=== PATIENT | female | born 1965 | race Caucasian/White ===

== ENCOUNTER 2018-11-17 14:39 | Observation (INO) | payer OTHER, SELFPAY ==
[2018-11-17 15:01] VITALS: BP 140/83; PULSE 90; RESP 15; TEMP 36.6; O2SAT 100; BMI 24.0
[2018-11-17 15:28] LABS: Add Manual Diff / Slide Review NO; Basophils Absolute Auto 0 /uL (0-100); Basophils Percent Auto 0.2 % (0-2); Eosinophils Absolute Auto 0 /uL (0-450); Eosinophils Percent Auto 0.2 % (2-4); Hematocrit 39.5 % (36-46); Hemoglobin 13.5 g/dL (12.0-16.0); Lymphocytes Absolute Auto 800 /uL (1100-4500); Lymphocytes Percent Auto 9.9 % (25-40); Mean Corpuscular HGB Conc 34.2 % (30-36); Mean Corpuscular Volume 99.5 fL (80-100); Monocytes Absolute Auto 800 /uL (0-900); Monocytes Percent Auto 9.5 % (3-14); Neutrophils Absolute Auto 6600 /uL (1500-7000); Neutrophils Percent Auto 80.2 % (50-75); Platelet Count 271 X10^3/uL (150-400); Red Blood Cell Count 3.97 X10^6/uL (4.0-5.2); Red Cell Distribution Width 13.5 % (11.6-14.8); White Blood Cell Count 8.2 X10^3/uL (4.5-11.0)
[2018-11-17 15:36] LABS: INR 1.1 (0.9-1.3); Prothrombin Time 12.2 SECONDS (10.1-12.7)
[2018-11-17 15:39] LABS: PTT Partial Thromboplastin Tim 32 SECONDS (26.4-36.2)
[2018-11-17 15:43] LABS: Alanine Aminotransferase 50 IU/L (9-52); Albumin 4.7 g/dL (3.5-5.0); Albumin Globulin Ratio 1.4 (1.0-2.8); Alkaline Phosphatase 98 U/L (38-126); Aspartate Aminotransferase 43 IU/L (14-36); Bilirubin Total 0.7 mg/dL (0.2-1.3); Blood Urea Nitrogen 8 mg/dL (7-17); Calcium 9.5 mg/dL (8.4-10.2); Carbon Dioxide 28 mmol/L (22-32); Chloride 103 mmol/L (98-107); Estimated Glomerular Filt Rate > 60.0 mL/min (>60); Globulin 3.4 g/dL (1.7-4.1); Glucose 107 mg/dL (70-100); HEMOLYSIS < 15 (0-50); Lipase 45 U/L (23-300); Potassium 4.1 mmol/L (3.4-5.1); Sodium 142 mmol/L (137-145); Total Protein 8.1 g/dL (6.3-8.2)
--- NOTE | 2018-11-17 15:55 | DI.CT.S_ITS ---
PROCEDURE: CT ABDOMEN PELVIS W CON INDICATIONS: RLQ rebound pain for 3 days TECHNIQUE: After the administration of intravenous contrast, 5 mm thick sections acquired from the diaphragm to the symphysis. 5 mm coronal and sagittal reformats were acquired. For radiation dose reduction, the following was used: automated exposure control, adjustment of mA and/or kV according to patient size. COMPARISON: None. FINDINGS: Image quality: Excellent. ABDOMEN: Lung bases: Lung bases are clear. Heart size is normal. Solid organs: Liver is normal in size and enhancement. Gallbladder unremarkable. Biliary system is non dilated. Pancreas enhances normally. Spleen is normal in size and enhancement. No adrenal nodules. Kidneys demonstrate normal size and enhancement, without hydronephrosis. There is a 3 mm left renal calculus on image 21. Peritoneum and bowel: There is inflammatory stranding seen within the right paracolic gutter, in the region of the cecum. Scattered shotty mesenteric lymph nodes, some 5 mm in size. The appendix appears enlarged measuring 8 mm in diameter however there is air within the lumen, which argues against obstruction. There is minimal periappendiceal fat stranding. No free fluid or air. No abscess. Nodes and vessels: No retroperitoneal or mesenteric adenopathy by size criteria. Aorta and inferior vena cava are normal in size. Miscellaneous: No ventral hernias. As PELVIS: Genitourinary: Bladder wall thickness is normal. Miscellaneous: No inguinal hernias or adenopathy. Bones: No suspicious bony lesions. No vertebral body compression fractures. IMPRESSION: Enlarged appendix, however air within lumen is not typically seen with obstruction. Minimal periappendiceal fat stranding, however there is also pericecal inflammatory change. Findings could reflect acute appendicitis, although alternative differential includes infectious or inflammatory proximal right colitis. As clinically warranted, colonoscopy could also be considered to exclude colonic malignancy. Nonobstructive sub-5 mm left renal calculus. Findings personally tel. and discussed with Isaias MASON in the emergency department 1642 hours on 11/17/18. Dictated by: Praneeth Green M.D. on 11/17/2018 at 16:34 Approved by: Praneeth Green M.D. on 11/17/2018 at 16:44
[2018-11-17] MEDS: SODIUM CHLORIDE 0.9% 1,000 ML 150 ML IV (16:32)
--- NOTE | 2018-11-17 17:03 | ED.ABDPAIN ---
HPI - Abdominal Pain <MARLON Melendez - Last Filed: 11/18/18 00:28> General Chief Complaint: Abdominal Pain Stated Complaint: RLQ Pain Time Seen by Provider: 11/17/18 15:11 Source: patient Mode of arrival: ambulatory Limitations: no limitations History of Present Illness HPI narrative: This is a 49-year-old female, nonsmoker, presents with her significant other with chief complain of right lower quadrant pain. She reports the pain started 2 days ago at 5:00 p.m. which has been progressively getting worse and consistent. Now, she is having chills decreased appetite. She also reports has been having constipation over the last 1 month and she has been taking laxatives intermittently. She denies urinary symptoms. She reports her pain is 5/10 at this time. She reports her pain gets aggravated with any movements. She denies nausea/vomiting. She has no known previous abdominal surgeries. Her last meal was 3 hours ago and had drank water was recently. Her last LMP was 3 years ago. Related Data Home Medications Medication Instructions Recorded Confirmed Barberry 1 tab PO DAILY 11/17/18 11/17/18 Calcium Tablet 1 tab PO DAILY 11/17/18 11/17/18 Fish Oil 1 cap PO DAILY 11/17/18 11/17/18 Vitamin D3 1 cap PO DAILY 11/17/18 11/17/18 magnesium 1 tab PO DAILY 11/17/18 11/17/18 milk thistle 1 tab PO DAILY 11/17/18 11/17/18 turmeric 1 tab PO DAILY 11/17/18 11/17/18 valacyclovir See Rx Instructions .ROUTE .COMPLEX 11/17/18 11/17/18 vitamin E 1 cap PO DAILY 11/17/18 11/17/18 vitamin K 1 tab PO DAILY 11/17/18 11/17/18 Allergies Allergy/AdvReac Type Severity Reaction Status Date / Time No Known Drug Allergies Allergy Verified 11/17/18 15:01 Review of Systems <MARLON Melendez - Last Filed: 11/18/18 00:28> Review of Systems General: See HPI HEENT: Denies sinus pain, ear pain, sore throat, difficulty swallowing, dizziness. Respiratory: Denies dyspnea, cough, wheezing, hemoptysis, sputum. Cardiovascular: Denies chest pain, palpitations, orthopnea, edema. Gastrointestinal: See HPI : Denies dysuria, frequency, incontinence, hematuria, urinary retention. Musculoskeletal: Denies weakness, joint pain or bony pain. Skin: Denies rash, skin lesions, or other. Neurologic: Denies weakness, headache, numbness, change in speech, confusion, seizures, incoordination. Psychiatric: No concerning psychosocial issues. 12-point review of systems is negative except for those stated above. PFSH <MARLON Melendez - Last Filed: 11/18/18 00:28> Surgical History H/O arthroscopy of left knee (Acute) H/O sinus surgery (Acute) Social History household members: spouse Smoking Status: Never smoker Social History household members: spouse Smoking Status: Never smoker Exam <MARLON Melendez - Last Filed: 11/18/18 00:28> Narrative Exam Narrative: General appearance: Appears to be younger than her stated age, well developed, well nourished, in some discomfort. Head: normocephalic, atraumatic, no scalp lesions, non-tender. Eye: pupil equal, round. EOMI. Nose: nares patent. Oral: mucosa moist. Neck/Thyroid: neck supple, full range of motion, no visible masses. Skin: no suspicious rashes, lesions over visible areas. Warm and dry. Heart: Normal regular rate and rhythm without murmurs, gallops, or rubs. Lungs: Clear to auscultate bilaterally without wheezing, rhonchi, rales. Breathing even and unlabored. No stridor. No accessory muscles used. Chest: normal shape and expansion. Abdomen: Bowel sounds active in 4 quadrants, non-obese, non-distended. Rebound tenderness to palpate in RLQ. Postive McBurney's tenderness and Rovsing's sign. No organomeally. BACK: Nontender without deformity or crepitance. No flank tenderness. EXT: Full painless ROM of all extremities with no loss of sensation, strength, effusion or edema. SKIN: Warm, dry, normal color for patient. No erythema, lesions or rash over visible areas. Neurologic: alert and oriented. Cognitive exam, EFFICIENCY MINER BLASTING and PNS grossly intact on informal exam. Psych: good eye contact, normal affect. Initial Vital Signs Initial Vital Signs: Vital Signs Temperature 97.8 F 11/17/18 15:01 Pulse Rate 90 11/17/18 15:01 Respiratory Rate 15 11/17/18 15:01 Blood Pressure 140/83 11/17/18 15:01 Pulse Oximetry 100 11/17/18 15:01 <Bossman Balbuena DO - Last Filed: 11/19/18 06:38> Initial Vital Signs Initial Vital Signs: Vital Signs Temperature 97.8 F 11/17/18 15:01 Pulse Rate 90 11/17/18 15:01 Respiratory Rate 15 11/17/18 15:01 Blood Pressure 140/83 11/17/18 15:01 Pulse Oximetry 100 11/17/18 15:01 Course <Isaias BoboMARLON rossi - Last Filed: 11/18/18 00:28> Decision to Admit Date: 11/17/18 Decision to Admit time: 17:03 Additional Information: Spoke with Dr. Beasley for consult and discuss findings. Dr. Beasley kindly accepted the patient under surgery service and will evaluate the patient upstairs later time. Orders Ordered: Acetaminophen (Tylenol) 650 mg PO Q6HR PRN PRN Reason: As Needed for Fever/Mild Pain Piperacillin/Tazobactam/Dextrose (Zosyn) 3.375 gm in 50 mls @ 100 mls/hr IV Q6H [facility] Last Infusion: 11/19/18 00:10 Dose: 0 mls/hr Admin: 11/18/18 23:39 Dose: 100 mls/hr Infusion: 11/18/18 17:31 Dose: 100 mls/hr Admin: 11/18/18 17:01 Dose: 100 mls/hr Infusion: 11/18/18 11:27 Dose: 100 mls/hr Admin: 11/18/18 10:57 Dose: 100 mls/hr Infusion: 11/18/18 06:34 Dose: 100 mls/hr Admin: 11/18/18 05:35 Dose: 100 mls/hr Infusion: 11/17/18 23:33 Dose: 100 mls/hr Admin: 11/17/18 23:03 Dose: 100 mls/hr Infusion: 11/17/18 18:00 Dose: 0 mls/hr Admin: 11/17/18 17:31 Dose: 100 mls/hr Metronidazole (Flagyl) 500 mg in 100 mls @ 100 mls/hr IV Q8H [facility] Last Admin: 11/19/18 04:08 Dose: 100 mls/hr Infusion: 11/18/18 23:39 Dose: 0 mls/hr Admin: 11/18/18 20:04 Dose: 100 mls/hr Infusion: 11/18/18 13:15 Dose: 100 mls/hr Admin: 11/18/18 12:15 Dose: 100 mls/hr Infusion: 11/18/18 05:31 Dose: 100 mls/hr Admin: 11/18/18 04:17 Dose: 100 mls/hr Infusion: 11/17/18 21:59 Dose: 100 mls/hr Admin: 11/17/18 20:59 Dose: 100 mls/hr Sodium Chloride (Normal Saline 0.45%) 1,000 mls @ 50 mls/hr IV CONT [facility] Last Admin: 11/18/18 10:17 Dose: 50 mls/hr Infusion: 11/18/18 07:00 Dose: 100 mls/hr Admin: 11/17/18 21:00 Dose: 100 mls/hr Ketorolac Tromethamine (Toradol) 15 mg IV Q6H PRN PRN Reason: Breakthrough Pain Stop: 11/23/18 10:10 Ondansetron HCl (Zofran) 4 mg IV Q4HR PRN PRN Reason: Nausea And Vomiting Discontinued Medications Sodium Chloride (Normal Saline 0.9%) 1,000 mls @ 150 mls/hr IV CONT [facility] Last Infusion: 11/17/18 19:20 Dose: 0 mls/hr Admin: 11/17/18 16:32 Dose: 150 mls/hr Morphine Sulfate (Morphine) 4 mg IV NOW ONE Stop: 11/17/18 17:51 Last Admin: 11/17/18 18:37 Dose: 4 mg Morphine Sulfate (Morphine) 4 mg IV Q2HR [facility] Last Admin: 11/18/18 09:02 Dose: Not Given Admin: 11/18/18 08:18 Dose: Not Given Admin: 11/18/18 05:03 Dose: Not Given Admin: 11/18/18 03:46 Dose: Not Given Admin: 11/18/18 00:24 Dose: 4 mg Admin: 11/18/18 00:24 Dose: Not Given Admin: 11/17/18 21:03 Dose: Not Given Admin: 11/17/18 19:57 Dose: Not Given Ondansetron HCl (Zofran) 4 mg IV NOW ONE Stop: 11/17/18 17:51 Last Admin: 11/17/18 18:37 Dose: 4 mg Vital Signs - 8 hr 11/18/18 23:36 11/18/18 23:45 11/19/18 02:49 Temperature 98.9 F 97.6 F Pulse Rate 77 63 Respiratory Rate 16 18 Blood Pressure 108/74 97/57 L Pulse Oximetry 96 96 96 <Bossman Balbuena, - Last Filed: 11/19/18 06:38> Orders Ordered: Acetaminophen (Tylenol) 650 mg PO Q6HR PRN PRN Reason: As Needed for Fever/Mild Pain Piperacillin/Tazobactam/Dextrose (Zosyn) 3.375 gm in 50 mls @ 100 mls/hr IV Q6H [facility] Last Infusion: 11/19/18 00:10 Dose: 0 mls/hr Admin: 11/18/18 23:39 Dose: 100 mls/hr Infusion: 11/18/18 17:31 Dose: 100 mls/hr Admin: 11/18/18 17:01 Dose: 100 mls/hr Infusion: 11/18/18 11:27 Dose: 100 mls/hr Admin: 11/18/18 10:57 Dose: 100 mls/hr Infusion: 11/18/18 06:34 Dose: 100 mls/hr Admin: 11/18/18 05:35 Dose: 100 mls/hr Infusion: 11/17/18 23:33 Dose: 100 mls/hr Admin: 11/17/18 23:03 Dose: 100 mls/hr Infusion: 11/17/18 18:00 Dose: 0 mls/hr Admin: 11/17/18 17:31 Dose: 100 mls/hr Metronidazole (Flagyl) 500 mg in 100 mls @ 100 mls/hr IV Q8H [facility] Last Admin: 11/19/18 04:08 Dose: 100 mls/hr Infusion: 11/18/18 23:39 Dose: 0 mls/hr Admin: 11/18/18 20:04 Dose: 100 mls/hr Infusion: 11/18/18 13:15 Dose: 100 mls/hr Admin: 11/18/18 12:15 Dose: 100 mls/hr Infusion: 11/18/18 05:31 Dose: 100 mls/hr Admin: 11/18/18 04:17 Dose: 100 mls/hr Infusion: 11/17/18 21:59 Dose: 100 mls/hr Admin: 11/17/18 20:59 Dose: 100 mls/hr Sodium Chloride (Normal Saline 0.45%) 1,000 mls @ 50 mls/hr IV CONT [facility] Last Admin: 11/18/18 10:17 Dose: 50 mls/hr Infusion: 11/18/18 07:00 Dose: 100 mls/hr Admin: 11/17/18 21:00 Dose: 100 mls/hr Ketorolac Tromethamine (Toradol) 15 mg IV Q6H PRN PRN Reason: Breakthrough Pain Stop: 11/23/18 10:10 Ondansetron HCl (Zofran) 4 mg IV Q4HR PRN PRN Reason: Nausea And Vomiting Discontinued Medications Sodium Chloride (Normal Saline 0.9%) 1,000 mls @ 150 mls/hr IV CONT [facility] Last Infusion: 11/17/18 19:20 Dose: 0 mls/hr Admin: 11/17/18 16:32 Dose: 150 mls/hr Morphine Sulfate (Morphine) 4 mg IV NOW ONE Stop: 11/17/18 17:51 Last Admin: 11/17/18 18:37 Dose: 4 mg Morphine Sulfate (Morphine) 4 mg IV Q2HR [facility] Last Admin: 11/18/18 09:02 Dose: Not Given Admin: 11/18/18 08:18 Dose: Not Given Admin: 11/18/18 05:03 Dose: Not Given Admin: 11/18/18 03:46 Dose: Not Given Admin: 11/18/18 00:24 Dose: 4 mg Admin: 11/18/18 00:24 Dose: Not Given Admin: 11/17/18 21:03 Dose: Not Given Admin: 11/17/18 19:57 Dose: Not Given Ondansetron HCl (Zofran) 4 mg IV NOW ONE Stop: 11/17/18 17:51 Last Admin: 11/17/18 18:37 Dose: 4 mg Vital Signs - 8 hr 11/18/18 23:36 11/18/18 23:45 11/19/18 02:49 Temperature 98.9 F 97.6 F Pulse Rate 77 63 Respiratory Rate 16 18 Blood Pressure 108/74 97/57 L Pulse Oximetry 96 96 96 MDM - Abdominal Pain <Isaias MARLON Downey - Last Filed: 11/18/18 00:28> Differential Diagnosis Differential diagnosis: Likely abdominal pain, acute appendicitis and calculus of kidney Medical Records Attestation: I reviewed the patient's medical records. Lab Data Attestation: I reviewed the patient's lab results. Result diagrams: 11/18/18 09:30 11/17/18 15:12 Lab Results 11/17/18 11/17/18 11/17/18 Range/Units 15:12 15:12 15:12 WBC 8.2 (4.5-11.0) X10^3/uL RBC 3.97 L (4.0-5.2) X10^6/uL Hgb 13.5 (12.0-16.0) g/dL Hct 39.5 (36-46) % MCV 99.5 (80-100) fL MCH 34.0 (26-34) PG MCHC 34.2 (30-36) % RDW 13.5 (11.6-14.8) % Plt Count 271 (150-400) X10^3/uL Neut % (Auto) 80.2 H (50-75) % Lymph % (Auto) 9.9 L (25-40) % Garland % (Auto) 9.5 (3-14) % Eos % (Auto) 0.2 L (2-4) % Baso % (Auto) 0.2 (0-2) % Neut # (Auto) 6600 (4864-6632) /uL Lymph # (Auto) 800 L (3562-2669) /uL Garland # (Auto) 800 (0-900) /uL Eos # (Auto) 0 (0-450) /uL Baso # (Auto) 0 (0-100) /uL PT 12.2 (10.1-12.7) SECONDS INR 1.1 (0.9-1.3) APTT 32 (26.4-36.2) SECONDS Sodium 142 (137-145) mmol/L Potassium 4.1 (3.4-5.1) mmol/L Chloride 103 (98-107) mmol/L Carbon Dioxide 28 (22-32) mmol/L BUN 8 (7-17) mg/dL Creatinine 0.50 L (0.52-1.04) mg/dL Estimated GFR > 60.0 (>60) mL/min BUN/Creatinine Ratio 16.0 (6-22) Glucose 107 H (70-100) mg/dL Calcium 9.5 (8.4-10.2) mg/dL Total Bilirubin 0.7 (0.2-1.3) mg/dL AST 43 H (14-36) IU/L ALT 50 (9-52) IU/L Alkaline Phosphatase 98 (38-126) U/L Total Protein 8.1 (6.3-8.2) g/dL Albumin 4.7 (3.5-5.0) g/dL Globulin 3.4 (1.7-4.1) g/dL Albumin/Globulin Ratio 1.4 (1.0-2.8) Lipase 45 (23-300) U/L 11/18/18 Range/Units 09:30 WBC 6.4 (4.5-11.0) X10^3/uL RBC 3.61 L (4.0-5.2) X10^6/uL Hgb 12.2 (12.0-16.0) g/dL Hct 35.9 L (36-46) % MCV 99.4 (80-100) fL MCH 33.8 (26-34) PG MCHC 34.0 (30-36) % RDW 13.2 (11.6-14.8) % Plt Count 228 (150-400) X10^3/uL Neut % (Auto) 77.8 H (50-75) % Lymph % (Auto) 10.0 L (25-40) % Garland % (Auto) 11.1 (3-14) % Eos % (Auto) 0.8 L (2-4) % Baso % (Auto) 0.3 (0-2) % Neut # (Auto) 5000 (6738-9900) /uL Lymph # (Auto) 600 L (4000-1475) /uL Garland # (Auto) 700 (0-900) /uL Eos # (Auto) 0 (0-450) /uL Baso # (Auto) 0 (0-100) /uL PT (10.1-12.7) SECONDS INR (0.9-1.3) APTT (26.4-36.2) SECONDS Sodium (137-145) mmol/L Potassium (3.4-5.1) mmol/L Chloride (98-107) mmol/L Carbon Dioxide (22-32) mmol/L BUN (7-17) mg/dL Creatinine (0.52-1.04) mg/dL Estimated GFR (>60) mL/min BUN/Creatinine Ratio (6-22) Glucose (70-100) mg/dL Calcium (8.4-10.2) mg/dL Total Bilirubin (0.2-1.3) mg/dL AST (14-36) IU/L ALT (9-52) IU/L Alkaline Phosphatase (38-126) U/L Total Protein (6.3-8.2) g/dL Albumin (3.5-5.0) g/dL Globulin (1.7-4.1) g/dL Albumin/Globulin Ratio (1.0-2.8) Lipase (23-300) U/L Point of care testing: Urine Dip Bedside Urine Glucose Negative Bedside Urine Bilirubin - Negative Bedside Urine Ketone + 15 Urine Specific Uehling 1.015 Bedside Urine Occult Blood +/- Bedside Urine pH 6.5 Bedside Urine Protein - Negative Bedside Urine Urobilinogen - Negative Bedside Urine Nitrite - Negative Bedside Urine Leukocytes - Negative Esterase Imaging Data CT scan - abdomen: Radiologist's impression: Lauren Lerma 53 F 1965 [place] [address] CT Scan Report Signed Patient: Lauren LermaMR#: [id number] : 1965Acct:[id number] Age/Sex: 53 / FDate of Service: 11/17/18 Loc: ED Accession Number: [id number] Procedure: CT abdomen pelvis w con Ordering Provider: Isaias Downey PROCEDURE: CT ABDOMEN PELVIS W CON INDICATIONS: RLQ rebound pain for 3 days TECHNIQUE: After the administration of intravenous contrast, 5 mm thick sections acquired from the diaphragm to the symphysis. 5 mm coronal and sagittal reformats were acquired. For radiation dose reduction, the following was used: automated exposure control, adjustment of mA and/or kV according to patient size. COMPARISON: None. FINDINGS: Image quality: Excellent. ABDOMEN: Lung bases: Lung bases are clear. Heart size is normal. Solid organs: Liver is normal in size and enhancement. Gallbladder unremarkable. Biliary system is non dilated. Pancreas enhances normally. Spleen is normal in size and enhancement. No adrenal nodules. Kidneys demonstrate normal size and enhancement, without hydronephrosis. There is a 3 mm left renal calculus on image 21. Peritoneum and bowel: There is inflammatory stranding seen within the right paracolic gutter, in the region of the cecum. Scattered shotty mesenteric lymph nodes, some 5 mm in size. The appendix appears enlarged measuring 8 mm in diameter however there is air within the lumen, which argues against obstruction. There is minimal periappendiceal fat stranding. No free fluid or air. No abscess. Nodes and vessels: No retroperitoneal or mesenteric adenopathy by size criteria. Aorta and inferior vena cava are normal in size. Miscellaneous: No ventral hernias. As PELVIS: Genitourinary: Bladder wall thickness is normal. Miscellaneous: No inguinal hernias or adenopathy. Bones: No suspicious bony lesions. No vertebral body compression fractures. IMPRESSION: Enlarged appendix, however air within lumen is not typically seen with obstruction. Minimal periappendiceal fat stranding, however there is also pericecal inflammatory change. Findings could reflect acute appendicitis, although alternative differential includes infectious or inflammatory proximal right colitis. As clinically warranted, colonoscopy could also be considered to exclude colonic malignancy. Nonobstructive sub-5 mm left renal calculus. Findings personally tel. and discussed with Isaias MASON in the emergency department 1642 hours on 11/17/18. Dictated by: Praneeth Green M.D. on 11/17/2018 at 16:34 Approved by: Praneeth Green M.D. on 11/17/2018 at 16:44 MDM Narrative Medical decision making narrative: This is a 53-year-old female who appears to be younger than her stated age came in with right lower quadrant pain 2 days. She reports the pain has been progressively worsening. Now she has chills, with decreased appetite. She does not have history of previous abdominal surgeries. She reports no urinary symptoms or flank pain, denies nausea or vomiting. She states has been having constipation problem for over 1 month which she has been taking laxatives intermittently for this. Her last LMP was 3 years ago in 2016. She states had eaten some small meal 3 hours ago and had drank just recently. The WBC was within normal but with elevated neutrophils with decreased lymphocytes. The chemistry result was unremarkable. Her CT scan shows enlarged appendix however air within the lumen is not typically seen with obstruction. There was minimal periappendiceal fat stranding. Also there is pericecal inflammatory changes. Findings could reflect acute appendicitis, also alternative differential includes infectious or inflammatory proximal right colitis, colonic malignancy. was consulted and informed the findings. He kindly accepted this patient under surgical service. Instructions was to have patient NPO, IV hydration, pain management and he will follow up later on today. Patient was treated with IV fluid normal saline, a dose of 4 mg of morphine IV, and Zofran IV 4 mg before admitted to inpatient for increasing pain right lower quadrant. The findings were shared with the patient and her significant other and treatment plan as admitted to inpatient under surgical service. No further questions was expressed by the patient or her significant other. <Bossman Balbuena, DO - Last Filed: 11/19/18 06:38> Lab Data Lab Results 11/17/18 11/17/18 11/17/18 Range/Units 15:12 15:12 15:12 WBC 8.2 (4.5-11.0) X10^3/uL RBC 3.97 L (4.0-5.2) X10^6/uL Hgb 13.5 (12.0-16.0) g/dL Hct 39.5 (36-46) % MCV 99.5 (80-100) fL MCH 34.0 (26-34) PG MCHC 34.2 (30-36) % RDW 13.5 (11.6-14.8) % Plt Count 271 (150-400) X10^3/uL Neut % (Auto) 80.2 H (50-75) % Lymph % (Auto) 9.9 L (25-40) % Garland % (Auto) 9.5 (3-14) % Eos % (Auto) 0.2 L (2-4) % Baso % (Auto) 0.2 (0-2) % Neut # (Auto) 6600 (6431-0499) /uL Lymph # (Auto) 800 L (9013-3955) /uL Garland # (Auto) 800 (0-900) /uL Eos # (Auto) 0 (0-450) /uL Baso # (Auto) 0 (0-100) /uL PT 12.2 (10.1-12.7) SECONDS INR 1.1 (0.9-1.3) APTT 32 (26.4-36.2) SECONDS Sodium 142 (137-145) mmol/L Potassium 4.1 (3.4-5.1) mmol/L Chloride 103 (98-107) mmol/L Carbon Dioxide 28 (22-32) mmol/L BUN 8 (7-17) mg/dL Creatinine 0.50 L (0.52-1.04) mg/dL Estimated GFR > 60.0 (>60) mL/min BUN/Creatinine Ratio 16.0 (6-22) Glucose 107 H (70-100) mg/dL Calcium 9.5 (8.4-10.2) mg/dL Total Bilirubin 0.7 (0.2-1.3) mg/dL AST 43 H (14-36) IU/L ALT 50 (9-52) IU/L Alkaline Phosphatase 98 (38-126) U/L Total Protein 8.1 (6.3-8.2) g/dL Albumin 4.7 (3.5-5.0) g/dL Globulin 3.4 (1.7-4.1) g/dL Albumin/Globulin Ratio 1.4 (1.0-2.8) Lipase 45 (23-300) U/L 11/18/18 Range/Units 09:30 WBC 6.4 (4.5-11.0) X10^3/uL RBC 3.61 L (4.0-5.2) X10^6/uL Hgb 12.2 (12.0-16.0) g/dL Hct 35.9 L (36-46) % MCV 99.4 (80-100) fL MCH 33.8 (26-34) PG MCHC 34.0 (30-36) % RDW 13.2 (11.6-14.8) % Plt Count 228 (150-400) X10^3/uL Neut % (Auto) 77.8 H (50-75) % Lymph % (Auto) 10.0 L (25-40) % Garland % (Auto) 11.1 (3-14) % Eos % (Auto) 0.8 L (2-4) % Baso % (Auto) 0.3 (0-2) % Neut # (Auto) 5000 (4629-2010) /uL Lymph # (Auto) 600 L (2026-5633) /uL Garland # (Auto) 700 (0-900) /uL Eos # (Auto) 0 (0-450) /uL Baso # (Auto) 0 (0-100) /uL PT (10.1-12.7) SECONDS INR (0.9-1.3) APTT (26.4-36.2) SECONDS Sodium (137-145) mmol/L Potassium (3.4-5.1) mmol/L Chloride (98-107) mmol/L Carbon Dioxide (22-32) mmol/L BUN (7-17) mg/dL Creatinine (0.52-1.04) mg/dL Estimated GFR (>60) mL/min BUN/Creatinine Ratio (6-22) Glucose (70-100) mg/dL Calcium (8.4-10.2) mg/dL Total Bilirubin (0.2-1.3) mg/dL AST (14-36) IU/L ALT (9-52) IU/L Alkaline Phosphatase (38-126) U/L Total Protein (6.3-8.2) g/dL Albumin (3.5-5.0) g/dL Globulin (1.7-4.1) g/dL Albumin/Globulin Ratio (1.0-2.8) Lipase (23-300) U/L Point of care testing: Urine Dip Bedside Urine Glucose Negative Bedside Urine Bilirubin - Negative Bedside Urine Ketone + 15 Urine Specific Uehling 1.015 Bedside Urine Occult Blood +/- Bedside Urine pH 6.5 Bedside Urine Protein - Negative Bedside Urine Urobilinogen - Negative Bedside Urine Nitrite - Negative Bedside Urine Leukocytes - Negative Esterase Discharge Plan Departure Patient Disposition: Admitted As Inpatient Clinical Impression: Acute appendicitis Qualifiers: Acute appendicitis type: unspecified acute appendicitis type Qualified Code(s): K35.80 - Unspecified acute appendicitis Discharge Date/Time: 11/17/18 19:24 Interventions: ED Discharge Assessment Last Done: 11/17/18 19:24 Admit Date/Time: 11/17/18 17:25 Admit Provider: Tim Camp <Bossman Balbuena DO - Last Filed: 11/19/18 06:38> Cosign ED Attending Curt Attestation: I was immediately available in the department for consultation. Documentation has been reviewed. I agree with assessment and plan.
[2018-11-17 17:15] VITALS: BP 114/72; PULSE 72; RESP 16; TEMP 36.4; O2SAT 100
[2018-11-17] MEDS: PIPERACILLIN-TAZO 3.375 GM/50 ML FROZ.PIGGY IV ×2 (17:31→23:03)
[2018-11-17 18:33] VITALS: BP 121/78; PULSE 67; RESP 16; O2SAT 99
[2018-11-17] MEDS: ONDANSETRON 4 MG/2 ML INJ IV (18:37)
[2018-11-17] MEDS: MORPHINE 4 MG/ML INJ IV (18:37)
[2018-11-17 19:27] VITALS: BP 136/77; PULSE 60; RESP 20; TEMP 37.9; O2SAT 99
[2018-11-17 19:45] VITALS: BMI 24.0
--- NOTE | 2018-11-17 20:23 | PM.HP.1 ---
History of Present Illness Date Patient Seen: 11/17/18 Time Patient Seen: 20:23 Chief complaint: RLQ Pain Narrative: 53-year-old white female patient with a 3 day history of abdominal pain. No nausea vomiting no diarrhea. No history of bloody stools no history of diarrhea. The patient typically is constipated. Pain increased over the last 48 hours and she came to the emergency room here at [facility]. She has normal white count was afebrile. CT of the abdomen and pelvis reveal some form of colitis around the cecum. There is some stranding in the cecal area. The appendix is mildly dilated but there is air in the lumen and the is no stranding around the appendix itself. Patient is actually maintained in appetite even through this evening. Patient History Surgical History H/O arthroscopy of left knee (Acute) H/O sinus surgery (Acute) Social History household members: spouse Smoking Status: Never smoker Family & Social History Social History: household members spouse Prior Living Arrangements House Safety & Behavioral: Feels Safe in Current Yes Environment Been Physically Hurt or No Threatened By a Person Suicidal Ideation Description None Suicide Plan Description No Plan Tobacco & Substance use: Smoking Status Never smoker alcohol intake frequency a few times a week Substance Use Type does not use Meds Home Medications Medication Instructions Recorded Confirmed Type Barberry 1 tab PO DAILY 11/17/18 11/17/18 History Calcium Tablet 1 tab PO DAILY 11/17/18 11/17/18 History Fish Oil 1 cap PO DAILY 11/17/18 11/17/18 History Vitamin D3 1 cap PO DAILY 11/17/18 11/17/18 History magnesium 1 tab PO DAILY 11/17/18 11/17/18 History milk thistle 1 tab PO DAILY 11/17/18 11/17/18 History turmeric 1 tab PO DAILY 11/17/18 11/17/18 History valacyclovir See Rx Instructions .ROUTE .COMPLEX 11/17/18 11/17/18 History vitamin E 1 cap PO DAILY 11/17/18 11/17/18 History vitamin K 1 tab PO DAILY 11/17/18 11/17/18 History Allergies Allergy/AdvReac Type Severity Reaction Status Date / Time No Known Drug Allergies Allergy Verified 11/17/18 15:01 Review of Systems Review of Systems All systems reviewed & are unremarkable except as noted in HPI and below Exam Vital Signs (past 8 hours): - 11/17/18 15:01 11/17/18 17:15 11/17/18 18:33 Temperature 97.8 F 97.6 F Pulse Rate 90 72 67 Respiratory Rate 15 16 16 Blood Pressure 140/83 Blood Pressure [Right Arm] 114/72 121/78 Pulse Oximetry 100 100 99 11/17/18 19:27 Temperature 100.2 F H Pulse Rate 60 Respiratory Rate 20 Blood Pressure 136/77 Blood Pressure [Right Arm] Pulse Oximetry 99 Oxygen Delivery Method Room Air Oxygen Flow Rate 0 Narrative Exam Narrative: Patient is alert and oriented temperature actually is 100 0.2. Lungs are clear Heart regular rhythm no murmur Abdomen mildly distended with exquisite right lower quadrant tenderness. There is guarding and some rebound tenderness in the right lower quadrant. The other quadrants are nontender and there is no referred tenderness. Extremities are normal Neurologic is normal Remaining physical is unremarkable Objective Labs Result Diagrams: 11/17/18 15:12 11/17/18 15:12 Labs: Laboratory Results - last 24 hr 11/17/18 11/17/18 11/17/18 15:12 15:12 15:12 WBC 8.2 RBC 3.97 L Hgb 13.5 Hct 39.5 MCV 99.5 MCH 34.0 MCHC 34.2 RDW 13.5 Plt Count 271 Neut % (Auto) 80.2 H Lymph % (Auto) 9.9 L [place] % (Auto) 9.5 Eos % (Auto) 0.2 L Baso % (Auto) 0.2 Neut # (Auto) 6600 Lymph # (Auto) 800 L [place] # (Auto) 800 Eos # (Auto) 0 Baso # (Auto) 0 PT 12.2 INR 1.1 APTT 32 Sodium 142 Potassium 4.1 Chloride 103 Carbon Dioxide 28 BUN 8 Creatinine 0.50 L Estimated GFR > 60.0 BUN/Creatinine Ratio 16.0 Glucose 107 H Calcium 9.5 Total Bilirubin 0.7 AST 43 H ALT 50 Alkaline Phosphatase 98 Total Protein 8.1 Albumin 4.7 Globulin 3.4 Albumin/Globulin Ratio 1.4 Lipase 45 Assessment & Plan Assessment & Plan narrative: Patient appears to have some form of colitis. Whether infectious or some inflammatory bowel disease is unclear. It does not appear that she has acute appendicitis. A begin treatment with intravenous antibiotics using Zosyn and Flagyl. Repeat white count in the morning. Patient had a colonoscopy 4 years ago which was normal. At the moment I do not plan for a laparotomy. I will treat the patient with intravenous antibiotics and observe. Quality VTE Deep Vein Thrombosis/Pulmonary Embolism Present on Admission: No
[2018-11-17 20:41] VITALS: BP 136/77; PULSE 60; RESP 14; TEMP 37.9; O2SAT 98
[2018-11-17] MEDS: metroNIDAZOLE 500 MG/100 ML PIGGYBACK 100 MG IV (20:59)
[2018-11-17] MEDS: SODIUM CHLORIDE 0.45% 1,000 ML 100 ML IV (21:00)
[2018-11-18] VITALS (11 sets, daily range): BP systolic 95–118; BP diastolic 50–74; PULSE 65–82; RESP 15–20; TEMP 36.6–37.6; O2SAT 96–99
[2018-11-18] MEDS: MORPHINE 4 MG/ML INJ IV (00:24)
[2018-11-18] MEDS: metroNIDAZOLE 500 MG/100 ML PIGGYBACK 100 MG IV ×3 (04:17→20:04)
[2018-11-18] MEDS: PIPERACILLIN-TAZO 3.375 GM/50 ML FROZ.PIGGY IV ×4 (05:35→23:39)
--- NOTE | 2018-11-18 05:51 | PC.NURSE ---
Pt VSS, Lung sounds clear bilaterally, denies pain. Pt was complaining about gas at 0130, warm blanket was given to help ease gas pain. Pt is forgetful of what is asked and what is told to her.
--- NOTE | 2018-11-18 05:57 | PC.NURSE ---
Pt is AxO, lung sounds clear bilaterally, VSS. Had one bout of pain 8/10 abdominally and given 4mg morphine which has helped. Pt has scheduled morphine but does not seem to need it at all the scheduled times. Pt was NPO at midnight.
[2018-11-18 09:47] LABS: Add Manual Diff / Slide Review NO; Basophils Absolute Auto 0 /uL (0-100); Basophils Percent Auto 0.3 % (0-2); Eosinophils Absolute Auto 0 /uL (0-450); Eosinophils Percent Auto 0.8 % (2-4); Hematocrit 35.9 % (36-46); Hemoglobin 12.2 g/dL (12.0-16.0); Lymphocytes Absolute Auto 600 /uL (1100-4500); Mean Corpuscular Hemoglobin 33.8 PG (26-34); Mean Corpuscular Volume 99.4 fL (80-100); Monocytes Absolute Auto 700 /uL (0-900); Monocytes Percent Auto 11.1 % (3-14); Neutrophils Absolute Auto 5000 /uL (1500-7000); Neutrophils Percent Auto 77.8 % (50-75); Platelet Count 228 X10^3/uL (150-400); Red Blood Cell Count 3.61 X10^6/uL (4.0-5.2); Red Cell Distribution Width 13.2 % (11.6-14.8); White Blood Cell Count 6.4 X10^3/uL (4.5-11.0)
--- NOTE | 2018-11-18 10:11 | PM.PN.1 ---
Subjective Date Patient Seen: 11/18/18 Time Patient Seen: 10:11 Interval history: Patient has been hospitalized here with right-sided abdominal pain almost 24 hours. She has been on IV antibiotic therapy for treatment of right-sided colitis unknown etiology. Patient says that she feels improvement in her pain and has less tenderness. No nausea or vomiting. Exam Vital Signs (past 8 hours): - 11/18/18 02:25 11/18/18 04:00 11/18/18 07:45 Temperature 99.5 F Pulse Rate 82 Respiratory Rate 16 Blood Pressure 107/61 Pulse Oximetry 97 99 98 11/18/18 08:00 Temperature 99.1 F Pulse Rate 72 Respiratory Rate 16 Blood Pressure 116/62 Pulse Oximetry 97 Oxygen Delivery Method Room Air Oxygen Flow Rate 0 Narrative Exam Narrative: Patient had a temperature of a 100.2? last evening is afebrile this morning. Abdomen is much less tender than yesterday. She has regional right lower quadrant tenderness but no other signs of abdominal tenderness and certainly no signs of peritonitis. Objective Labs Result Diagrams: 11/18/18 09:30 11/17/18 15:12 Labs: Laboratory Results - last 24 hr 11/17/18 11/17/18 11/17/18 15:12 15:12 15:12 WBC 8.2 RBC 3.97 L Hgb 13.5 Hct 39.5 MCV 99.5 MCH 34.0 MCHC 34.2 RDW 13.5 Plt Count 271 Neut % (Auto) 80.2 H Lymph % (Auto) 9.9 L [place] % (Auto) 9.5 Eos % (Auto) 0.2 L Baso % (Auto) 0.2 Neut # (Auto) 6600 Lymph # (Auto) 800 L [place] # (Auto) 800 Eos # (Auto) 0 Baso # (Auto) 0 PT 12.2 INR 1.1 APTT 32 Sodium 142 Potassium 4.1 Chloride 103 Carbon Dioxide 28 BUN 8 Creatinine 0.50 L Estimated GFR > 60.0 BUN/Creatinine Ratio 16.0 Glucose 107 H Calcium 9.5 Total Bilirubin 0.7 AST 43 H ALT 50 Alkaline Phosphatase 98 Total Protein 8.1 Albumin 4.7 Globulin 3.4 Albumin/Globulin Ratio 1.4 Lipase 45 11/18/18 09:30 WBC 6.4 RBC 3.61 L Hgb 12.2 Hct 35.9 L MCV 99.4 MCH 33.8 MCHC 34.0 RDW 13.2 Plt Count 228 Neut % (Auto) 77.8 H Lymph % (Auto) 10.0 L [place] % (Auto) 11.1 Eos % (Auto) 0.8 L Baso % (Auto) 0.3 Neut # (Auto) 5000 Lymph # (Auto) 600 L [place] # (Auto) 700 Eos # (Auto) 0 Baso # (Auto) 0 PT INR APTT Sodium Potassium Chloride Carbon Dioxide BUN Creatinine Estimated GFR BUN/Creatinine Ratio Glucose Calcium Total Bilirubin AST ALT Alkaline Phosphatase Total Protein Albumin Globulin Albumin/Globulin Ratio Lipase Assessment & Plan Assessment & Plan narrative: Patient has right-sided colitis unknown etiology. Yesterday her white count was 8600 today it is 6400. She is afebrile. She is improving in her pain and has less tenderness. Therefore I will continue treatment with IV Zosyn and Flagyl. When she is improved significantly more I will send her home on oral antibiotic therapy. I have informed the patient that she needs to have a colonoscopy in about a month to 6 weeks. She understands the treatment plan. Quality VTE Deep Vein Thrombosis/Pulmonary Embolism Present on Admission: No
[2018-11-18] MEDS: SODIUM CHLORIDE 0.45% 1,000 ML 50 ML IV (10:17)
--- NOTE | 2018-11-18 12:55 | CM.DANOTE ---
DCP/Assessment: Reviewed chart. Patient is a 53yr old female admitted to [facility] with RLQ pain. Patient has no PCP listed. Primary payor is 1)[employer]. Met with patient and spouse/Eliu at bedside explained CM/SW role. Patient reports that she came in with extreme abdominal pain. It is anticipated that patient may need surgery to remove appendix. Patient confirms that she does not have PCP but knows how to go about obtaining one. Patient completely I in all ADL's and does not anticipate any d/c planning needs. CM team will continue to follow. Patient aware and agreeable. P: Home when stable. DIMITRI Kenney Discharge Planning/Care Management Advanced directive, confirm from FAMILY Start: 11/17/18 19:56 Freq: Q24H Status: Active Protocol: Document 11/17/18 20:01 AKP (Rec: 11/17/18 20:01 AKP [id number]) Advance Directive, confirm on record Time 20:01 Person contacted spouse Eliu Copy received No CM Discharge Assessment Start: 11/18/18 12:39 Freq: Status: Active Protocol: Document 11/18/18 12:39 KJS (Rec: 11/18/18 12:55 KJS [id number]) Discharge Planning Assessment Assigned Inclusion Specialist DIMITRI Kenney Contact Information Eliu Pizanowang (spouse) Advance Directives? Yes History Provided By Patient Significant Other Prior Living Arrangements House Household Members spouse Type of transporation used prior to Drives own vehicle admit Independent with ADL's Yes Is patient alert and oriented? Yes Caregiver for Another No Barriers to Discharge No Discharge Plan Home Referrals Initiated None needed Whiteboard Updated in Patient Room with Yes name and ext. # of Inclusion Specialist Review Status In Process Next Review Type Continued Stay Review
--- NOTE | 2018-11-18 14:30 | PC.NURSE ---
1430 Pt frequently up ambulating in the hallway, states pain to lower R quad is much less today, however, flaker tender when palpated. Pt voiding w/o diff. Cont w/IVF & antibx. Pt took in full liq lunch, david well. No complaints at this time. Pt states is anxious to go home tomorrow. remains afebrile.
[2018-11-19 02:49] VITALS: BP 97/57; PULSE 63; RESP 18; TEMP 36.4; O2SAT 96
[2018-11-19] MEDS: metroNIDAZOLE 500 MG/100 ML PIGGYBACK 100 MG IV (04:08)
--- NOTE | 2018-11-19 05:05 | PC.NURSE ---
Ramp Manager Summary Denies abdominal pain; RLQ tenderness to palpation. Bowel tones present. Flatus present. No BM this shift.
[2018-11-19] MEDS: PIPERACILLIN-TAZO 3.375 GM/50 ML FROZ.PIGGY IV (06:59)
[2018-11-19 07:45] VITALS: O2SAT 98
[2018-11-19] MEDS: CIPROFLOXACIN 500 MG TABLET PO (08:13)
[2018-11-19 08:23] VITALS: BP 123/73; PULSE 75; RESP 16; TEMP 36.6; O2SAT 98
--- NOTE | 2018-11-19 09:55 | PM.DS.1 ---
History of Present Illness Chief complaint: RLQ Pain Narrative: 53-year-old white female patient with a 3 day history of abdominal pain. No nausea vomiting no diarrhea. No history of bloody stools no history of diarrhea. The patient typically is constipated. Pain increased over the last 48 hours and she came to the emergency room here at [facility]. She has normal white count was afebrile. CT of the abdomen and pelvis reveal some form of colitis around the cecum. There is some stranding in the cecal area. The appendix is mildly dilated but there is air in the lumen and the is no stranding around the appendix itself. Patient is actually maintained in appetite even through this evening. Discharge Providers Date of admission: 11/17/18 17:25 Discharge Date: 11/19/18 Discharge provider: Tim Camp MD Summary Discharge Diagnosis: COLITIS UNKNOWN ETIOLOGY ASCENDING COLON AND CECUM. THIS MAY BE RELATED TO EATING TENTED OR OYSTERS. Hospital Course: Patient was admitted the hospital with right-sided abdominal pain and CT scan showing colitis around the cecum and ascending colon. Appendix appeared to be normal. Patient had a normal white count on to evaluations. She was treated for suspected infectious colitis based on her having eaten suspicious or oysters. She was treated with intravenous Zosyn and Flagyl. On discharge today she has minimal or no pain no nausea vomiting and is having normal stools. She is tolerating a full liquid diet. She will be discharged today on Cipro 500 p.o. b.i.d. for 5 more days. Patient has been instructed that she needs a colonoscopy in 4-6 weeks. Status at Discharge Cognitive/behavioral status at discharge: oriented Functional status at discharge: independent ambulation Overall status at discharge: patient is back to baseline Time Spent with Patient Less than 30 minutes Exam Vital Signs (past 8 hours): - 11/19/18 02:49 11/19/18 07:45 11/19/18 08:23 Temperature 97.6 F 98 F Pulse Rate 63 75 Respiratory Rate 18 16 Blood Pressure 97/57 L 123/73 Pulse Oximetry 96 98 98 Oxygen Delivery Method Room Air Oxygen Flow Rate 0 Objective Labs Result Diagrams: 11/18/18 09:30 11/17/18 15:12 Discharge Plan Discharge Plan Patient Disposition: Home Discharge Med Rec/Prescriptions Prescriptions: New ciprofloxacin HCl [Cipro] 500 mg Tablet 500 mg PO BID 5 Days Qty: 10 RF: 0 Continued valacyclovir 1 gram tablet See Rx Instructions .ROUTE .COMPLEX RF: 0 Barberry 1 tab PO DAILY RF: 0 Calcium Tablet 1 tab PO DAILY RF: 0 Fish Oil 1 cap PO DAILY RF: 0 Vitamin D3 1 cap PO DAILY RF: 0 magnesium 1 tab PO DAILY RF: 0 milk thistle 1 tab PO DAILY RF: 0 turmeric 1 tab PO DAILY RF: 0 vitamin E 1 cap PO DAILY RF: 0 vitamin K 1 tab PO DAILY RF: 0 Provider Discharge Instructions Diet: Diet as Tolerated Diet comment: SOFT AT FIRST Skin/Wound/Dressing Care Report to your healthcare provider any signs of infection, such as:: chills, fever and increased pain Visit Report/Discharge Packet Instructions: DI for Colitis Discharge Data Attending Provider: Tim Camp Admit Date/Time: 11/17/18 17:25 Quality VTE Deep Vein Thrombosis/Pulmonary Embolism Present on Admission: No
== END 2018-11-19 10:26 | disposition home or self-care (01) ==
LOC: ED 15:11 → AC 19:27
PROVIDERS: Emergency Medicine; Admitting Provider Surgery; Emergency Provider Nurse Practitioner Family; Visit Provider Surgery
DX: K52.9 Noninfective gastroenteritis and colitis, unspecified (principal)
CPT/HCPCS: 36415; 74177; 80053; 81003; 83690; 85025; 85610; 85730; 96361; 96365; 96366; 96368; 96375; 99217; 99219; 99224; 99283; 99284; G0378; J2270; J2405; J2543; J7050; Q9967